=== PATIENT | female | born 1960 | race Caucasian/White ===

== ENCOUNTER 2017-06-01 11:32 | Emergency (ER) | payer BC, OTHER ==
--- NOTE | 2017-06-01 12:50 | CT ---
CT BRAIN WITHOUT CONTRAST: Comparison: None. History: Fall after tripping over dog on stairs and hitting her right skull. Technique: Multiple contiguous axial images were obtained in a CT of the brain without contrast. FINDINGS: The brain is normal in morphology and attenuation without focal lesions or confluent areas of infarct ion. There is no evidence of hydrocephalus, intracranial hemorrhage, or extraaxial fluid collections. There is soft tissue swelling in the right parietal scalp. Underlying calvarium is unremarkable. The visualized paranasal sinuses and mastoid air cells are well aerated. IMPRESSION: No evidence of acute intracranial abnormality. POS: [facility]
--- NOTE | 2017-06-01 13:05 | CT ---
CT OF THE CERVICAL SPINE WITHOUT CONTRAST: COMPARISON: None. HISTORY: Fall after tripping over a dog on the stairs. Neck pain. TECHNIQUE: Multiple contiguous axial images were obtained in a CT of the cervical spine without contrast. Sagit sin and coronal reformats were performed. FINDINGS: The vertebral bodies demonstrate normal height and alignment without fracture or subluxation. Modera te degenerative changes are seen. No prevertebral soft tissue swelling is seen. The posterior facets are well aligned. Normal alignment of the skull base with the cervical spine is seen. IMPRESSION: No evidence of acute osseous abnormality of the cervical spine. POS: [facility]
== END 2017-06-01 16:39 | disposition home or self-care (01) ==
LOC: ERS 11:32
DX: S16.1XXA Strain of muscle, fascia and tendon at neck level, initial encounter (principal); S00.03XA Contusion of scalp, initial encounter; E78.5 Hyperlipidemia, unspecified; I10 Essential (primary) hypertension; F41.9 Anxiety disorder, unspecified; F32.9 Major depressive disorder, single episode, unspecified; Z85.3 Personal history of malignant neoplasm of breast; W01.198A Fall on same level from slipping, tripping and stumbling with subsequent striking against other object, initial encounter
CPT/HCPCS: 70450; 72125

== ENCOUNTER 2017-10-21 16:36 | Emergency (ER) | payer OTHER ==
[2017-10-21 17:15] LABS: #Basophils 0.1 thou/uL (0.0-0.2); #Eosinphils 0.2 thou/uL (0.0-0.7); #Lymphocytes 2.4 thou/uL (1.20-3.40); #Monocytes 0.7 thou/uL (0.11-0.59); %Basophils 0.8 % (0.0-1.0); %Eosinophils 2.4 % (0.0-10.0); %Lymphocytes 22.7 % (21.0-51.0); %Neutrophils 67.2 % (42.0-75.0); Hemoglobin 13.8 g/dL (12.0-16.0); Mean Corpuscular HGB CONC 32.4 g/dL (32.0-36.0); Mean Corpuscular Hemoglobin 31.4 pg (27.0-31.0); Mean Corpuscular Volume 96.7 fL (78.0-98.0); Mean Platelet Volume 6.7 fL (7.4-10.4); Platelet Count 202 thou/uL (130-400); RBC Distribution Width 12.5 % (11.5-14.5); Red Blood Cell (RBC) Count 4.41 mill/uL (4.20-5.40); White Blood Cell (WBC) Count 10.4 thou/uL (4.8-10.8)
[2017-10-21 17:29] LABS: Acetaminophen Less than 6.0 mcg/mL (10.0-30.0); Alcohol Less than 10 mg/dL (Less than 10); Lipase 22 U/L (8-78); Salicylate Less than 8.0 mg/dL (15.0-30.0)
[2017-10-21 17:35] LABS: ALT (SGPT) 14 U/L (8-55); AST (SGOT) 25 U/L (5-34); Albumin 4.3 g/dL (3.5-5.0); Alkaline Phosphatase 124 U/L (40-150); Anion Gap 17 mmol/L (10-20); BUN (Urea Nitrogen) 38 mg/dL (9.8-20.1); Bilirubin, Total 1.1 mg/dL (0.2-1.2); CK (CPK) 200 U/L (29-168); Calc. Creatinine Clearance 0 mL/min (70-130); Calcium 9.8 mg/dL (7.8-10.44); Carbon Dioxide 24 mmol/L (22-29); Chloride 103 mmol/L (98-107); Estimated GFR-MDRD 35; Globulin 3.2 g/dL (2.4-3.5); Glucose 141 mg/dL (70-105); Potassium 3.4 mmol/L (3.5-5.1); Protein, Total 7.5 g/dL (6.0-8.3); Sodium 141 mmol/L (136-145)
[2017-10-21 17:38] LABS: CKMB 3.3 ng/mL (0-6.6); Troponin I Less than 0.010 ng/mL (< 0.028)
--- NOTE | 2017-10-21 17:49 | RAD ---
PORTABLE CHEST: 10/21/17 HISTORY: Mental status change. COMPARISON: 03/26/16. FINDINGS: The lungs appear well aerated and clear of infiltrate. A nodular density in the left lung base abuts the left hemidiaphragm. This is of uncertain significance. No evidence of vascular congestion or edema. Heart size is normal. Scoliotic curvature of the thoraci c spine. IMPRESSION: 1. No evidence of acute infiltrate. 2. A nodular opacity overlying the left lung base adjacent to the hemidiaphragm. This is not ghulam quately evaluated on this portable film. Suggest elective followup PA and lateral views of the chest. POS: [facility]
--- NOTE | 2017-10-21 17:54 | CT ---
CT HEAD WITHOUT CONTRAST: 10/21/17 Multiple axial tomograms obtained through the head without IV enhancement. HISTORY: Mental status change. The ventricles have normal size and position. No evidence of intracranial mass, hemorrhage, or infarc t. Sinuses and mastoids are well aerated. IMPRESSION: No acute abnormality. POS: [facility]
[2017-10-21 19:43] LABS: Bilirubin Large (Negative); Blood, Urine Negative (Negative); Clarity CLEAR (Clear); Glucose, Urine (Dipstick) Negative (Negative); Leukocyte Trace (Negative); Nitrite Negative (Negative); Protein, Urine (Dipstick) Negative (Neg-Trace); Specific Gravity, Urine 1.018 (1.002-1.036); Urobilinogen 0.2 mg/dL (0.2-1.0)
[2017-10-21 19:45] LABS: Bacteria/HPF None Seen HPF (None Seen); Hyaline Casts/LPF 7-10 HYALINE CAST LPF (0-3 Hyaline); Pathc Cast-AUWi Flag 1.01 (0-2.49); Squamous Epithelial 0-3 HPF (0-3); WBC/HPF 0-3 HPF (0-3)
[2017-10-21 19:54] LABS: Amphetamine Detected (NotDetected); Cocaine Metabolite Screen Not Detected (NotDetected); Medtox Reader # READER 4; Methamphetamine Detected (NotDetected); Opiate Screen Not Detected (NotDetected); Phencyclidine (PCP) Not Detected (NotDetected); THC/Cannabinoid Screen Not Detected (NotDetected)
[2017-10-21 19:55] LABS: Barbiturates Screen Not Detected (NotDetected); Benzodiazepine Screen Not Detected (NotDetected); Medtox Control Line Valid? VALID (VALID); Methadone Not Detected (NotDetected); Oxycodone Screen Not Detected (NotDetected); Tricyclic Screen Detected (NotDetected)
== END 2017-10-21 20:56 | disposition home or self-care (01) ==
LOC: ERS 16:36
DX: R41.82 Altered mental status, unspecified (principal); E03.9 Hypothyroidism, unspecified; E78.5 Hyperlipidemia, unspecified; I10 Essential (primary) hypertension; F41.9 Anxiety disorder, unspecified; F32.9 Major depressive disorder, single episode, unspecified; Z79.899 Other long term (current) drug therapy
CPT/HCPCS: 36415; 70450; 71045; 80053; 80306; 80307; 81003; 81015; 82140; 82553; 83690; 84443; 84484; 85025; 93005; 96360

== ENCOUNTER 2018-04-21 06:45 | Day surgery (SDC) | payer MEDICARE ==
[2018-04-20 16:13] VITALS: BMI 27.6
[2018-04-21 08:18] VITALS: BP 133/77; TEMP 96.9
--- NOTE | 2018-04-21 10:13 | RAD ---
THORACIC SPINE MYELOGRAM AND LUMBAR SPINE MYELOGRAM: INDICATION: Disk degeneration, thoracic and lumbar spine pain. History of prior instrumentation for posttraumati c compression fracture. Progressive pain of lower extremities bilaterally. PROCEDURE: After informed consent had been obtained, the patient was escorted to the interventional suite and pl aced on the procedural table. Nursing Manager imaging was performed. The patient was placed into a prone posi tion. Skin on the low back was then prepped and draped in the standard sterile fashion and topical a nd regional soft tissue anesthesia was achieved with 1% lidocaine and sodium bicarbonate. L3-4 left interlaminar approach was selected, and a 22 gauge needle was uneventfully advanced into the thecal sac with clear color CSF. Subsequently, 11 cc Isovue-M 300 was instilled into the thecal sac under r eal time fluoroscopy. Appropriate opacification of thecal sac demonstrated with imaging stored for c onfirmation. The needle was then removed from the patient. The patient tolerated the procedure well and was then transferred to CT to undergo subsequent myelogram. Reference separate report for full details. FLUORO DATA: 0.4 minutes intermittent fluoroscopy, 61.2 mGy*^m2. IMPRESSION: Technically successful thoracic and lumbar myelogram as detailed above. POS: [facility]
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
--- NOTE | 2018-04-21 11:00 | CT ---
CT OF THORACIC SPINE WITH CONTRAST: CLINICAL HISTORY: Progressive back pain. History of prior injury with surgical fixation related to lumbar compression fracture. FINDINGS: There is mild thoracic kyphosis. Multifocal vertebral body lucencies with internal trabeculae are pr esent throughout the thoracic spine compatible with multilevel intraosseous hemangioma formation. No evidence of thoracic spine compression fracture or significant subluxation. Mild multilevel end bert te degenerative change throughout the thoracic spine is present without evidence of significant steno sis of the thoracic spine vertebral canal. No high-grade foraminal stenosis. Please reference the concurrently dictated lumbar spine CT myelogram for details of the subjacent lum bar spine. There is a dorsal column stimulator in place which traverses the posterior aspect of the thoracic spine, vertebral canal, entering from a T11-12 level. The thoracic spinal cord demonstrates appropriate caliber and contour. IMPRESSION: 1. Chronic findings of the thoracic spine. 2. No evidence of thoracic spine compression fracture or subluxation. POS: [facility]
[2018-04-21] MEDS ORDERED: Iopamidol-M 300 61% 15 ML VIAL ONE (16:58)
== END 2018-04-21 11:10 | disposition home or self-care (01) ==
LOC: RAD 06:45 → EDSTATUS 08:00 → RAD 11:10
PROVIDERS: ATTEND Surgery
PROC: B01B1ZZ Fluoroscopy of Spinal Cord using Low Osmolar Contrast (ICD-10-PCS; principal; 2018-04-21)
DX: M51.36 Other intervertebral disc degeneration, lumbar region (principal); M51.26 Other intervertebral disc displacement, lumbar region; M48.061 Spinal stenosis, lumbar region without neurogenic claudication; M41.9 Scoliosis, unspecified; G89.4 Chronic pain syndrome; K57.30 Diverticulosis of large intestine without perforation or abscess without bleeding; Z79.899 Other long term (current) drug therapy; Z88.1 Allergy status to other antibiotic agents; Z88.5 Allergy status to narcotic agent; Z98.890 Other specified postprocedural states; Z98.1 Arthrodesis status; Z96.89 Presence of other specified functional implants
CPT/HCPCS: 62305; 72129; 72132

== ENCOUNTER 2018-09-06 09:41 | Outpatient (CLI) | payer MEDICARE ==
--- NOTE | 2018-09-07 14:30 | MRI ---
MRI thoracic spine with and without contrast DATE: 09/07/2018 HISTORY: 58-year-old female with severe thoracic spine pain. "Closed wedge compression fracture of seventh thoracic vertebra, initial encounter" COMPARISON: MRI of 11/10/2016 FINDINGS: Metallic hardware at T12 and upper lumbar spine. Exaggerated kyphosis of T12-L1 due to oral compressi on/burst fracture of L1. Hemangiomas of bone (venous malformations of bone) at multiple levels, including C7, T8, and T9 vertebral bodies. All of the thoracic vertebral body heights are maintained. Thoracic spinal cord is normal in size and signal, with no syringohydromyelia. Nerve root sleeve cyst in left T8-9 neural foramen and right T10-11 neural foramen. No high-grade central spinal canal stenosis. No cord impingement. No evidence of infectious spondylitis, neither intraosseous, perivertebral, epidural, or subarachnoid. No abnormal, unexpected enhancement. Dorsal column spinal c ord stimulator lead within posterior aspect of the spinal canal at lower levels. No other significant interval change. Dextroscoliosis of lower thoracic spine. No high-grade neural foraminal stenosis. IMPRESSION: 1. Dextroscoliosis of lower thoracic spine. 2. Spinal cord stimulator leads at lower levels. 3. No evidence of neoplasm, fracture, high-grade central spinal canal stenosis, or infectious spondyl itis.
--- NOTE | 2018-09-07 14:48 | MRI ---
MRI lumbar spine with and without contrast: DATE: 09/07/2018 HISTORY: Compression fracture of lumbar vertebra. Chronic low back pain. COMPARISON: CT of 04/21/2018 and MRI of 11/10/2016. TECHNIQUE: Patient has an [place] MRI-conditional spinal cord stimulator, but for which the JOEY limit is very low. The MRI of the thoracic spine and lumbar spine were is blood into 2 days, with periods of breaks between sequences. FINDINGS: There are 5 lumbar-type vertebrae. There is an old burst fracture of L1. Left lateral metallic sidepl ate fixated to T12 vertebral body and L2 vertebral body with transversely oriented screws. Cylindrical cage from inferior endplate of T12 to superior endplate of L2. Bony retropulsion of L1 re sults in approximately 30% decrease in cross-sectional area of the spinal canal at that level. The metallic hardware results in local magnetic susceptibility artifact in the immediate area. There is n o abnormal bone marrow signal or abnormal enhancement in the intraosseous, perivertebral, or intradural or extradural spaces, at other levels. There is gibbus at T12-L1 and levoscoliosis at L2-3 . No high-grade neural foraminal stenosis at any level. Disc bulges at L2-3 and L3-4, and to a lesser degree L4-5 and L5-S1. Mild central spinal canal stenosis at L3-4. Spinal canal and thecal sac are generous in caliber at all other levels. No interval change since the recent CT. Other than the spinal cord stimulator, no major interval change since 2017. IMPRESSION: 1. There is a traumatic burst fracture of L1 fixated with metallic hardware, and associated gibbus an d levoscoliosis. 2. Lumbar spondylosis with degenerative disc disease of varying degrees. 3. No evidence of high-grade central spinal canal stenosis, high-grade neural foraminal stenosis, no fracture, neoplasm, or infectious spondylitis (with the caveat that the vertebral bodies at the level of hardware are difficult to evaluate in detail).
== END 2018-09-06 09:42 | disposition home or self-care (01) ==
LOC: MRI 09:41
PROVIDERS: ATTEND Anesthesiology Pain Medicine
DX: S22.060A Wedge compression fracture of T7-T8 vertebra, initial encounter for closed fracture (principal); S32.011A Stable burst fracture of first lumbar vertebra, initial encounter for closed fracture; M41.9 Scoliosis, unspecified; M47.816 Spondylosis without myelopathy or radiculopathy, lumbar region; M51.36 Other intervertebral disc degeneration, lumbar region
CPT/HCPCS: 72157; 72158

== ENCOUNTER 2020-02-28 08:55 | Outpatient (CLI) | payer MEDICARE ==
--- NOTE | 2020-02-28 11:08 | MRI ---
THORACIC SPINE MRI WITHOUT CONTRAST: COMPARISON: 09/06/2018. HISTORY: Closed wedge compression fracture of T7 reported on previous MRI. FINDINGS: Redemonstration of vertebral body hemangiomas at T8 and T9. There is also incompletely evaluated fusi on hardware at T12. There is appropriate T1 marrow signal intensity of the facet vertebrae. Thoracic spine vertebral body heights are maintained. There is no fracture. There is no significant S TIR hyperintensity to suggest ligamentous injury or vertebral body edema. Visualized mediastinum, lung parenchyma, paraspinal soft tissues and solid organs of appropriate sign al intensity. The thoracic cord has normal size and signal intensity. No cord malacia. No cord expansion. Redemonstration of an incidental perineural sleeve cyst in the left neural foramen at T8-T9 and right neural foramen at T10-T11. Throughout the thoracic spine, there is no significant central canal stenosis or significant neural f oraminal narrowing. IMPRESSION: 1. No evidence of significant central canal stenosis or significant neural foraminal narrowing. 2. No evidence of thoracic spine fracture. Transcribed Date/Time: 02/28/2020 11:14 AM
== END 2020-02-28 08:56 | disposition home or self-care (01) ==
LOC: MRI 08:55
PROVIDERS: ATTEND Nurse Practitioner Family
DX: S22.000D Wedge compression fracture of unspecified thoracic vertebra, subsequent encounter for fracture with routine healing (principal)
CPT/HCPCS: 72146

== ENCOUNTER 2021-01-17 14:38 | Outpatient (CLI) | payer MEDICARE ==
[2021-01-18 00:54] LABS: SARS-CoV-2 PCR by NAA Not Detected (NotDetected)
== END 2021-01-17 14:39 | disposition home or self-care (01) ==
LOC: LABBT 14:38
DX: Z01.812 Encounter for preprocedural laboratory examination (principal); Z20.822 Contact with and (suspected) exposure to COVID-19
CPT/HCPCS: U0003; U0005

== ENCOUNTER 2021-01-21 11:26 | Day surgery (SDC) | payer MEDICARE ==
[2020-12-11 11:44] VITALS: BMI 32.6
[2021-01-21] MEDS ORDERED: EPINEPHrine 1 MG/ML AMP ONE (12:20)
[2021-01-21] MEDS ORDERED: Bupivacaine PF 0.5% 30 ML VIAL ONE (12:20)
[2021-01-21] MEDS ORDERED: Lidocaine 2% PF 5 ML VIAL ONE (12:21)
[2021-01-21] MEDS ORDERED: Fentanyl 100 MCG/2 ML VIAL ONE (12:42)
[2021-01-21] MEDS ORDERED: Propofol 1,000 MG/100 ML VIAL IV ONE (12:42)
[2021-01-21] MEDS ORDERED: PROPOFOL 200 MG/20 ML VIAL ONE (12:52)
[2021-01-21] MEDS ORDERED: Acetaminophen 500 MG TAB ONE (14:48)
== END 2021-01-21 15:22 | disposition home or self-care (01) ==
LOC: SDC 11:26
PROVIDERS: ATTEND Anesthesiology Pain Medicine
PROC: 0JPT0MZ Removal of Stimulator Generator from Trunk Subcutaneous Tissue and Fascia, Open Approach (ICD-10-PCS; principal; 2021-01-21)
PROC: 0JH70MZ Insertion of Stimulator Generator into Back Subcutaneous Tissue and Fascia, Open Approach (ICD-10-PCS; 2021-01-21)
DX: G89.4 Chronic pain syndrome (principal); M96.1 Postlaminectomy syndrome, not elsewhere classified; M47.814 Spondylosis without myelopathy or radiculopathy, thoracic region; E03.9 Hypothyroidism, unspecified; G43.909 Migraine, unspecified, not intractable, without status migrainosus; J45.909 Unspecified asthma, uncomplicated; E78.5 Hyperlipidemia, unspecified; G58.9 Mononeuropathy, unspecified; E66.9 Obesity, unspecified; Z68.32 Body mass index [BMI] 32.0-32.9, adult; Z79.899 Other long term (current) drug therapy; Z85.3 Personal history of malignant neoplasm of breast; Z88.1 Allergy status to other antibiotic agents; Z88.5 Allergy status to narcotic agent
CPT/HCPCS: C1767; J0171; J2001; J2704; J3010; S0020